=== PATIENT | female | born 1980 | race Caucasian/White ===

== ENCOUNTER 2017-02-18 23:41 | Inpatient (IN) | payer OTHER ==
[2017-02-19] MEDS ORDERED: Nalbuphine* 20 MG/ML 1 ML VIAL IM PRN (01:15)
[2017-02-19] MEDS ORDERED: Promethazine INJ(RESTRICTED)* 25 MG/ML 1 ML VIAL IM PRN (01:15)
[2017-02-19] MEDS ORDERED: Promethazine INJ(RESTRICTED)* 25 MG/ML 1 ML VIAL ONE (01:27)
[2017-02-19] MEDS ORDERED: Nalbuphine* 20 MG/ML 1 ML VIAL ONE (01:27)
[2017-02-19] MEDS ORDERED: Oxytocin in LR* 20 UNITS/1,000 ML BAG IVPB ONE (09:32)
[2017-02-19 09:38] LABS: Hematocrit 35 % (35-47); Mean Corpuscular HGB Conc 35 g/dl (31-36); Mean Corpuscular Hemoglobin 30 pg (27-31); Mean Corpuscular Volume 86 fL (80-97); Mean Platelet Volume 7 um3 (7.4-10.4); Red Blood Count 4.02 10^6/ul (4.0-5.4); Red Cell Distribution Width 16 % (10.5-15); White Blood Count 9.1 10^3/ul (3.5-10.8)
[2017-02-19] MEDS ORDERED: Oxytocin in LR* 20 UNITS/1,000 ML BAG IVPB SCH ×2 (10:00→15:00)
[2017-02-19] MEDS ORDERED: OBEPIDURAL* 250 ML ONE (11:05)
[2017-02-19] MEDS ORDERED: Sodium Citrate/Citric Acid* 15 ML UDC PO PRN (12:54)
[2017-02-19] MEDS ORDERED: Phenylephrine IV* 40 MCG/ML 10 ML SYRINGE IV PUSH PRN (12:54)
[2017-02-19] MEDS ORDERED: Famotidine TAB* 20 MG PO PRN (12:54)
[2017-02-19] MEDS ORDERED: OBEPIDURAL* 250 ML EPIDURAL SCH (13:00)
[2017-02-19] MEDS ORDERED: Dibucaine 1% 28.35 GM TUBE PR PRN (14:23)
[2017-02-19] MEDS ORDERED: Misoprostol TAB* 200 MCG PR ONE (14:23)
[2017-02-19] MEDS ORDERED: Tetan/Diph/Pertus SYR(Tdap)* 0.5 ML SYR(BOOSTRIX) use SYR IM ONE (14:23)
[2017-02-19] MEDS ORDERED: Acetaminophen TAB* 325 MG PO PRN (14:23)
[2017-02-19] MEDS ORDERED: Glycerin ADULT SUPP PR PRN (14:23)
[2017-02-19] MEDS ORDERED: Witch Hazel PAD* JAR TOPICAL PRN (14:23)
[2017-02-19] MEDS ORDERED: Methylergonovine INJ* 0.2 MG/ML 1ML AMP IM ONE (15:40)
[2017-02-19] MEDS ORDERED: Simethicone CHEW TAB* 80 MG PO SCH (17:30)
[2017-02-19] MEDS: Ibuprofen TAB* 600 MG PO PRN (21:17)
[2017-02-19] MEDS: Docusate CAP* 100 MG PO SCH (21:17)
[2017-02-20] MEDS: Ibuprofen TAB* 600 MG PO PRN ×2 (06:14→15:50)
[2017-02-20] MEDS: Docusate CAP* 100 MG PO SCH ×3 (08:58→20:28)
[2017-02-20] MEDS ORDERED: Ferrous Gluconate TAB* 324 MG TAB PO SCH (09:00)
[2017-02-20 09:28] LABS: Hematocrit 32 % (35-47); Hemoglobin 10.9 g/dl (12.0-16.0); Mean Corpuscular HGB Conc 34 g/dl (31-36); Mean Corpuscular Hemoglobin 30 pg (27-31); Mean Corpuscular Volume 88 fL (80-97); Mean Platelet Volume 7 um3 (7.4-10.4); Red Blood Count 3.62 10^6/ul (4.0-5.4); Red Cell Distribution Width 16 % (10.5-15); White Blood Count 12.4 10^3/ul (3.5-10.8)
[2017-02-20] MEDS: Phenazopyridine TAB* 100 MG PO PRN (17:46)
[2017-02-20 18:11] LABS: Urine Bacteria Absent (Absent); Urine Bilirubin Negative (Negative); Urine Glucose Negative (Negative); Urine Nitrite Negative (Negative)
[2017-02-21] MEDS: Ibuprofen TAB* 600 MG PO PRN ×2 (00:03→07:12)
[2017-02-21] MEDS: Phenazopyridine TAB* 100 MG PO PRN ×2 (04:19→13:03)
[2017-02-21 08:26] VITALS: BP 132/72
== END 2017-02-21 13:49 | disposition home or self-care (01) | DRG 775 ==
LOC: MCHOBOUT 23:41 → MCHOB 02-19 08:46
PROVIDERS: ADMIT Midwife; ATTEND Midwife
PROC: 10E0XZZ Delivery of Products of Conception, External Approach (ICD-10-PCS; principal; 2017-02-19)
DX: O48.0 Post-term pregnancy (principal); O63.0 Prolonged first stage (of labor); Z3A.40 40 weeks gestation of pregnancy; Z37.0 Single live birth
CPT/HCPCS: 36415; 81003; 81015; 85025; 86850; 86900; 86901; 87077; 87086; 87186; A9270-GY; J2210; J2300; J2550